=== PATIENT | female | born 1980 | race Caucasian/White ===

== ENCOUNTER → 2016-10-26 | Outpatient (CLI) | payer OTHER ==
[~2016-10-26] MED LIST: OXYC-57 PO; PRENTAB26 PO
[2016-10-26 16:51] LABS: URINE APPEARANCE CLEAR (CLEAR); URINE BILIRUBIN NEG (NEG); URINE COLOR YELLOW; URINE NITRITE NEG (NEG); URINE PH 6.5 (4.5-7.5); UROBILINOGEN NEG (NEG)
[2016-10-26 16:54] LABS: MANUAL MICROSCOPIC REQUIRED? NO; REVIEW REQ? NO
[2016-10-30 14:52] LABS: CHLAMYDIA TRACH RNA*** NOT DETECTED (NOT DETECTED); GC (NEIS GONORRHOEAE)RNA** NOT DETECTED (NOT DETECTED)
== END | disposition home or self-care (01) ==
LOC: C.LABSPEC 16:20
PROVIDERS: ATTEND Obstetrics & Gynecology
DX: O09.42 Supervision of pregnancy with grand multiparity, second trimester (principal)

== ENCOUNTER → 2016-10-26 | Outpatient (CLI) | payer OTHER ==
[2016-10-26 12:53] LABS: BASO % 0.2 %; BASO ABS # 0.02 K/uL (0-0.2); COMPLETE YES; HEMATOCRIT 36.9 % (37-47); IG% 1.3 %; LYMPH % 26.8 %; LYMPH ABS # 2.69 K/uL (1.2-3.4); MEAN CELL VOLUME 94.6 fL (80-100); MEAN CORPUSCULAR HEMOGLOBIN 31.8 pg (25-34); MEAN CORPUSCULAR HGB CONC 33.6 g/dl (32-36); MEAN PLATELET VOLUME 10.9 fL (7.4-10.4); MONO % 5.6 %; NEUT % 64.1 %; PLATELET COUNT 271 K/uL (130-400); WHITE BLOOD COUNT 10.04 K/uL (4.8-10.8)
== END | disposition home or self-care (01) ==
LOC: C.LAB1850 10:41
PROVIDERS: ATTEND Obstetrics & Gynecology
DX: O09.42 Supervision of pregnancy with grand multiparity, second trimester (principal)

== ENCOUNTER → 2016-12-21 | Outpatient (CLI) | payer OTHER ==
[2016-12-21 12:03] LABS: HEMATOCRIT 36.4 % (37-47)
[2016-12-21 13:27] LABS: GTGD 50 Grams
== END | disposition home or self-care (01) ==
LOC: C.LAB1850 09:57
PROVIDERS: ATTEND Obstetrics & Gynecology
DX: O09.523 Supervision of elderly multigravida, third trimester (principal); Z3A.00 Weeks of gestation of pregnancy not specified

== ENCOUNTER → 2016-12-21 | Outpatient (CLI) | payer OTHER ==
[2016-12-21 14:13] LABS: URINE APPEARANCE CLEAR (CLEAR); URINE BILIRUBIN NEG (NEG); URINE COLOR DK YELLOW; URINE NITRITE NEG (NEG); URINE PH 6.5 (4.5-7.5); URINE SPECIFIC GRAVITY 1.027 (1.000-1.030); UROBILINOGEN NEG (NEG)
[2016-12-21 14:24] LABS: MANUAL MICROSCOPIC REQUIRED? NO; REVIEW REQ? YES
== END | disposition home or self-care (01) ==
LOC: C.LABSPEC 13:31
PROVIDERS: ATTEND Obstetrics & Gynecology
DX: O09.523 Supervision of elderly multigravida, third trimester (principal); Z3A.00 Weeks of gestation of pregnancy not specified

== ENCOUNTER → 2017-02-27 | Outpatient (CLI) | payer OTHER ==
[~2017-02-27] MED LIST changes: -OXYC-57 PO
== END | disposition home or self-care (01) ==
LOC: C.LABSPEC 16:02
PROVIDERS: ATTEND Obstetrics & Gynecology
DX: O09.523 Supervision of elderly multigravida, third trimester (principal)

== ENCOUNTER 2017-03-08 11:23 | Outpatient (CLI) | payer OTHER ==
[~2017-03-08] VITALS: Ht 162.6 cm; Wt 87.0 kg
[2017-03-08] MEDS ORDERED: PRENTAB26 PO (12:01)
[2017-03-08 12:04] VITALS: Ht 162.6 cm; Wt 87.0 kg
== END 2017-03-08 12:45 | disposition home or self-care (01) ==
LOC: C.OPB 11:23 → C.LD 11:23 → C.OPB 12:45
PROVIDERS: ATTEND Obstetrics & Gynecology
DX: O62.9 Abnormality of forces of labor, unspecified (principal); Z3A.39 39 weeks gestation of pregnancy

== ENCOUNTER 2017-03-09 08:05 | Inpatient (IN) | payer OTHER ==
[~2017-03-09] VITALS: Ht 162.6 cm; Wt 88.2 kg
[2017-03-09] MEDS ORDERED: LACTATED RINGER'S 1000ML 1,000 ML IV PRN (08:18)
[2017-03-09] MEDS ORDERED: LACTATED RINGER'S 1000ML 1,000 ML IV SCH (08:18)
[2017-03-09] MEDS ORDERED: PENICILLIN G POTASSIUM IV 3 MU in DEXTROSE 5% 100ML 100 ML IV PRN (08:30)
[2017-03-09] MEDS ORDERED: PENICILLIN G POTASSIUM IV 6 MU in DEXTROSE 5% 250ML 250 ML IV ONE (08:45)
[2017-03-09 09:02] LABS: HEMATOCRIT 35.4 % (37-47); MEAN CELL VOLUME 89.8 fL (80-100); MEAN CORPUSCULAR HEMOGLOBIN 30.2 pg (25-34); MEAN CORPUSCULAR HGB CONC 33.6 g/dl (32-36); MEAN PLATELET VOLUME 9.8 fL (7.4-10.4); PLATELET COUNT 228 K/uL (130-400); RED BLOOD COUNT 3.94 M/uL (4.2-5.4); WHITE BLOOD COUNT 10.34 K/uL (4.8-10.8)
[2017-03-09 09:25] VITALS: Ht 162.6 cm; Wt 88.2 kg
[2017-03-09] MEDS ORDERED: FENTANYL 2MCG/ML ROPIV 1.25MG/ML 100ML BAG EPI ONE (09:44)
[2017-03-09] MEDS ORDERED: EpHEDrine SULFATE INJ 50 MG/ML AMP ONE (09:44)
[2017-03-09] MEDS ORDERED: BUPIVACAINE 0.25% 30 ML VIAL ONE (09:44)
[2017-03-09] MEDS ORDERED: FENTANYL CITRATE INJ 50 MCG/1 ML 2 ML VIAL ONE (09:45)
[2017-03-09] MEDS ORDERED: LACTATED RINGER'S 1000ML 500 ML IV PRN (10:40)
[2017-03-09] MEDS ORDERED: FENTANYL 2MCG/ML ROPIV 1.25MG/ML 100ML BAG EPI PRN (10:45)
[2017-03-09] MEDS ORDERED: NALOXONE HCL INJ 0.4 MG/1 ML VIAL/CARP IV PRN (10:45)
[2017-03-09] MEDS ORDERED: EpHEDrine SULFATE INJ 50 MG/ML AMP IV PRN (10:45)
--- NOTE | 2017-03-09 11:48 | Medical Student: [facility] ---
Med Student History & Physical Date of Service Mar 09, 2017. Chief Complaint R/O Labor History of Present Illness Source: patient This is a 36 year old female who presents for a labor check. Her ISMAEL is 03/12 based on 1st trimester US, and she is 39 weeks, 4 days GA. Her course was uncomplicated. She is currently feeling contractions every 10 minutes and has had no SROM, leakage of fluid, or vaginal bleeding. She states that she can feel movements.Her blod type is A+ and she is rubella immune ; GBS positive; hep B negative; VDRL/RPR non-reactive; HIV C/G negative; 1 hour glucose 133 on 12/21, just above high limit of normal. She denies headache, dizziness, epigastric/chest pain, shortness of breath, nausea/vomiting, dysuria , and bowel problems. OB History : 04/29/1998, male, , no complications; 6 lbs, 12 ounces G2: 07/25/2007, female, , no complications;7 lbs, 11 ounces G3: 11/14/2008, female, , no complications; 6 lbs, 7 ounces G4: 02/05/2013, female, , no complications; 7 lbs, 12 ounces AIRPLANE PILOT History Menarche: age 11 LMP: 06/05/2016 Pap history: abnormal pap at age 20 with close follow up; no abnormals since then No history of STIs. Past Medical History No pertinent medical history. Past Surgical History Appendectomy [place] teeth extraction Family History Father: HTN Mother: hyperthyroidism Daughter: AML shortly after ; currently in remission Social History Smoking Status: Never Smoker Smokeless Tobacco Use: No Alcohol Use: none Drug Use: none Marital Status: Housing status: lives with family Occupational Status: employed Allergies Coded Allergies: Nitrofurantoin (Unverified Allergy, Intermediate, RASH, 03/09/17) scratchy throat Home Medications Multivit/Min/Iron/Fol Ac/Pren ( Vitamin), 1 TAB PO DAILY Review of Systems Constitutional: No fever, No chills, No sweats, No weight loss, No weakness, No fatigue, No problem reported Respiratory: No cough, No sputum, No wheezing, No shortness of breath, No dyspnea on exertion, No dyspnea at rest, No hemoptysis, No problem reported Cardiovascular: No chest pain, No orthopnea, No PND, No edema, No claudication , No palpitations, No problem reported Abdomen: No pain, No nausea, No vomiting, No diarrhea, No constipation, No GI bleeding, No problem reported Genitourinary - Female: + , No dysuria, No urinary retention, No hematuria, No vaginal bleeding Neurologic: No problem reported Physical Exam Vital Signs: T 36.6 BP 121/71 HR 78 RR 18 General Appearance: WD/WN, no apparent distress Head: normocephalic Eyes: normal inspection Respiratory/Chest: chest non-tender, lungs clear Cardiovascular: regular rate, rhythm, no edema, no JVD, no murmur Abdomen / GI: normal bowel sounds, non tender, + pertinent finding (Gravid uterus) Genitourinary - Female: + pertinent finding (Dilation: 4 cm Effacement: 90% Station: -2 (exam by Dr. Al)) Extremities: normal inspection, no calf tenderness, no pedal edema Skin: normal color Monitoring External Monitor: Moderate variability. +Accels. No decels. Category 1. HR baseline: 130. Tocodynamometer: Contractions every 10 minutes. Laboratory Results 03/09/17 08:52 Test 03/09/17 08:52 Red Blood Count 3.94 M/uL (4.2-5.4) Mean Corpuscular Volume 89.8 fL (80-100) Mean Corpuscular Hemoglobin 30.2 pg (25-34) Mean Corpuscular Hemoglobin Concent 33.6 g/dl (32-36) RDW Standard Deviation 45.8 fL (36.4-46.3) RDW Coefficient of Variation 13.8 % (11.5-14.5) Mean Platelet Volume 9.8 fL (7.4-10.4) Assessment and Plan Assessment: This is a 36-year-old female who presents for labor check at 39 weeks, 4 days GA. Her has had no complications. Vital signs were reviewed and are stable. Plan: Admit to labor and delivery. Monitor mother and fetus with toco and EFM. NPO except ice chips and clear liquids. Expectant management for now. Will consider Pitocin and/or AROM for induction if needed ( distress, prolonged first stage of labor) Expect normal spontaneous vaginal delivery.
[2017-03-09] MEDS ORDERED: OXYTOCIN 30 UNITS/500ML NSS IV ONE (14:12)
[2017-03-09] MEDS ORDERED: LANOLIN OINT EXT PRN ×2 (14:30)
[2017-03-09] MEDS ORDERED: SUPERCREAM 0.870 % 15GM JAR EXT PRN (14:30)
[2017-03-09] MEDS ORDERED: HYDROCORTISONE ACETATE 25 MG SUPP PR PRN (14:30)
[2017-03-09] MEDS ORDERED: OXYTOCIN 30 UNITS/500ML NSS IV PRN (14:30)
[2017-03-09] MEDS ORDERED: ACETAMINOPHEN/CODEINE 300/30MG TAB PO PRN (14:30)
[2017-03-09] MEDS ORDERED: BENZOCAINE 20% AER SPR 82.5 GM CAN EXT PRN (14:30)
[2017-03-09] MEDS ORDERED: IBUPROFEN 600 MG TAB PO PRN (14:30)
[2017-03-09] MEDS ORDERED: ACETAMINOPHEN 325 MG TAB PO PRN (14:30)
--- NOTE | 2017-03-09 14:31 | DELIVERY SUMMARY ---
DATE OF OPERATION: 03/09/2017 DATE OF DELIVERY: 03/09/2017 PREOPERATIVE DIAGNOSES: 1. Intrauterine at 39-4/7 weeks. 2. Active labor. 3. GBS positive. POSTOPERATIVE DIAGNOSIS: Same. PROCEDURES: 1. Epidural anesthesia. 2. Penicillin for GBS prophylaxis. 3. Amniotomy. 4. Normal spontaneous vaginal delivery. 5. Small periurethral laceration with repair. SURGEON: Dr. Al. ASSIST: Dr. Marks, PGY1 ANESTHESIA: Epidural. ESTIMATED BLOOD LOSS: 350 mL. PROCEDURE: The patient presented to labor and delivery in early active labor. She is GBS positive so she was admitted. She got adequate treatment for her GBS with 2 doses of penicillin and an epidural anesthesia. Once the second dose of penicillin was in amniotomy was performed of clear fluid when she was 5.5 cm. She progressed to complete complete +3 station, pushed x1 to deliver a viable female in YURIY presentation. There was no nuchal cord. The nose and mouth were bulb suctioned. The rest of the infant was delivered without difficulty. Infant was placed on the maternal abdomen where the cord was clamped and cut. Cord blood was obtained. Placenta was manually extracted from the lower uterine segment, it was intact. Cervix, sulci, rectum and perineum were intact. A small tear over the urethra was repaired with 2 interrupted sutures of 4-0 Vicryl. Hemostasis was obtained with dilute Pitocin and fundal massage. Estimated blood loss 350 mL. Apgars pending. Mother and baby doing well at the end of the delivery. I attest to the content of the Intraoperative Record and any orders documented therein. Any exceptions are noted below. MTDKurtis
--- NOTE | 2017-03-09 17:02 | Anesthesia Procedure Note ---
Anesthesia Epidural Removal Nt Date & Time Mar 09, 2017 at 17:02 Notes Mental Status: alert / awake / arousable, participated in evaluation Nausea / Vomiting: adequately controlled Pain: adequately controlled Airway Patency, RR, SpO2: stable & adequate BP & HR: stable & adequate Hydration State: stable & adequate Neuraxial Anesthesia: was administered Anesthetic Complications: no major complications apparent, pt satisfied with anesthetic care Epidural: removed without complications, with tip intact
[2017-03-09 17:30] VITALS: BP 106/66; PULSE 71; TEMP 37.4
[2017-03-09] MEDS: DOCUSATE SODIUM 100 MG CAP PO SCH (19:57)
[2017-03-09 20:00] VITALS: BP 114/73; PULSE 71; TEMP 37.3
[2017-03-09 23:35] VITALS: BP 111/72; PULSE 68; TEMP 37.3; O2SAT 98
[2017-03-10 03:30] VITALS: BP 117/72; PULSE 73; TEMP 37; O2SAT 97
[2017-03-10 07:30] VITALS: BP_SYST 112; BP_SYST 113; BP_DIAS 72; BP_DIAS 75; PULSE 66; PULSE 69; TEMP 37; O2SAT 98
[2017-03-10 07:37] LABS: HEMATOCRIT 36.6 % (37-47)
--- NOTE | 2017-03-10 07:37 | Progress Note ---
Subjective Mar 10, 2017. Subjective conversation w/ patient, physical exam, lab review Ambulation: ambulating normally Voiding: no voiding problems Passing Gas: Yes Diet Tolerance: Regular Diet Lochia: Small Feeding Type: Breast Feeding Objective Vital Signs Date Time Temp Pulse Resp B/P (MAP) Pulse Ox O2 Delivery O2 Flow Rate FiO2 03/10/17 03:30 37.0 73 16 117/72 (87) 97 Room Air 03/09/17 23:35 37.3 68 16 111/72 (85) 98 Room Air 03/09/17 23:35 98 Room Air 03/09/17 20:00 37.3 71 16 114/73 (87) Room Air 03/09/17 17:30 37.4 71 18 106/66 (79) 03/09/17 17:30 Room Air Physical Exam General Appearance: WELL-APPEARING, WD/WN, NO APPARENT DISTRESS Respiratory/Chest: chest non-tender, lungs clear Cardiovascular: regular rate, rhythm Abdomen: non tender, soft Fundus: Firm, Non-Tender, Relation to Umbilicus (2 below) Extremities: non-tender, normal inspection, + pedal edema (trace) Laboratory Results Last 24 Hours Test 03/09/17 08:52 03/10/17 06:36 White Blood Count 10.34 K/uL Red Blood Count 3.94 M/uL Hemoglobin 11.9 g/dL Hematocrit 35.4 % Mean Corpuscular Volume 89.8 fL Mean Corpuscular Hemoglobin 30.2 pg Mean Corpuscular Hemoglobin Concent 33.6 g/dl RDW Standard Deviation 45.8 fL RDW Coefficient of Variation 13.8 % Platelet Count 228 K/uL Mean Platelet Volume 9.8 fL Assessment and Plan Post- Day#: 1 Continue Routine Care: Doing well. Wants d/c today. Instructions given. Call with problems.
--- NOTE | 2017-03-10 07:41 | Discharge Instructions ---
Discharge Instructions Date of Service Mar 10, 2017. Admission Reason for Admission: R/O Labor Discharge Discharge Diagnosis / Problem: s/p vaginal delivery Discharge Goals Goal(s): Routine recovery after delivery Medications Continue Dispensed Medications: supercream, dermaplast, tucks, lansinoh Activity Recommendations Activity Limitations: per Instructions/Follow-up section . Instructions / Follow-Up Instructions / Follow-Up ACTIVITY RECOMMENDATIONS: * Gradual return to full activity over the next 2-3 weeks. * No lifting - nothing heavier than baby over the next 2-3 weeks. * Do not engage in vigorous exercise, sexual activity or sports until cleared by your physician. * Do not drive or operate any motorized equipment until cleared by your physician. * You may shower/bathe daily. MEDICATIONS: For discomfort or pain, you may use Acetaminophen (Tylenol), Ibuprofen (Advil), or Naproxen (Aleve) following the package directions. For constipation you may use Colace following the package directions. BREAST CARE: If you are not breast feeding: * Wear a supportive bra 24 hours a day for one to two weeks. * Avoid stimulating your breasts and nipples as much as possible during the first few weeks after delivery. * When taking a shower, have the warm water hit your back, not breasts. * When your breasts feel full, apply ice packs. Usually three to four times a day helps ease the discomfort. * Take a mild pain medication (Tylenol / Motrin) when you are uncomfortable. If breast feeding: * Use breast milk to lubricate nipples. Lansinoh cream may be used for sore nipples. You do not need to remove cream prior to breast feeding. If using a different brand of cream, check the label for directions regarding removal of cream prior to nursing. * Wear a supportive bra. * If having problems with breasts or breast feeding, call a marine consultant or your health care provider. EPISIOTOMY CARE: After delivery, if you have an episiotomy (stitches), the following steps will ease discomfort and aid healing. * For the first 24 hours after delivery, place ice packs next to your episiotomy to help reduce swelling. * After the first 24 hour-period, sitz baths, either portable or in the tub, are suggested. A shower with a shower arm sprayed over the episiotomy may be comforting. * Nany care should be done after each voiding and bowel movement. Squirt warm water from a plastic bottle over the perineum (region of the body between the anus and urinary opening) and pat dry. * Use Dermoplast to ease discomfort. Shake container. [place] directly over the episiotomy. Place a Tucks on a clean sanitary pad next to your episiotomy. SPECIAL CARE INSTRUCTIONS: When you are discharged from the hospital, it is important for you to follow the instructions listed below: * During the first week at home, you should be able to care for yourself and your baby. In addition, the usual light household activities are encouraged. * Limit your activities to the way you feel. Do not try to clean the house or move furniture. Be sensible. * If you actively engage in sports and have done so up until the time of your delivery, you may resume these activities as soon as you feel able. This may take up to one month or even longer. Use good judgment. * Continue to take your vitamins for at least six weeks after the of your baby. * Your diet need not be limited unless you were on a special diet before your delivery. Breast-feeding mothers need around 2500 calories per day and at least 64-80 ounces of fluid per day (8 to 10 glasses). * You should eat foods from the four major food groups. Crash diets or fad diets are to be avoided. Eating lean meats, fresh fruits and vegetables, low-fat dairy products, high fiber foods and a regular exercise program, will help you get back to your pre- weight without putting your health at risk. * Constipation is sometimes a problem after delivery. Take a mild laxative as needed. If breast feeding, Milk of Magnesia is acceptable to use. You may use a suppository or Fleets enema if no episiotomy. * A daily shower or tub bath is suggested. Be sure to thoroughly and gently dry the perineum. * A bloody vaginal discharge will usually continue until around four weeks post . A small amount of bleeding may continue for as long as six weeks. Vaginal discharge changes from the bright red bleeding after delivery to pink then brownish and finally yellowish-pink before becoming white and disappearing. * Bleeding may increase with activity. Your first period may come in 4-8 weeks. If you are breast feeding, your period may be delayed even longer. * [place] (sex) can begin whenever both you and your partner feel comfortable and do not have any form of genital infection. It is recommended that you wait at least six weeks for internal and external healing to occur. If you have questions, please talk to your health care practitioner. A condom should be used to prevent infection and . * Foreplay, gentle intercourse and lubrication is very important the first several times to prevent pain. A water-based lubricant such as K-Y jelly or Astroglide may be used. * If you have RH negative blood and your baby is RH positive, you will receive RHOGAM by injection prior to discharge. The nurse will give you a card to keep with you that has the date and place that you received RHOGAM after delivery. * During your care, you had a Rubella screen done to check for the presence of rubella antibodies in your blood. If your test was negative, you will receive a Rubella vaccine prior to discharge. This vaccine may cause a fever, soreness at the injection site and flu-like symptoms. If these symptoms persist, notify your health care practitioner. is not advised for one month after a Rubella vaccine. * Verbalizes understanding of car seat law as reviewed with patient nursing. * Car Seat hand-out given and reviewed with patient by nursing. * Shaken baby information reviewed with patient by nursing. Call you doctor if: * Heavy bleeding (saturating several pads an hour) or passing clots the size of your fist. * A fever >101 degrees F (38.3 degrees C) on two occasions four hours apart and /or chills. * Unusual pain in the pelvic or vaginal areas. * "Baby Blues" lasting longer than two weeks. If you have any questions or concerns, call your health care practitioner at . FOLLOW UP VISIT: * Please call the office at to schedule a 6 week examination. It is important you keep this appointment. It is important for you to make arrangements for either yearly or twice yearly check-ups thereafter. Current Hospital Diet Patient's current hospital diet: Regular Diet Discharge Diet Recommended Diet: Regular Diet Pending Studies Studies pending at discharge: no Medical Emergencies . Who to Call and When: Medical Emergencies: If at any time you feel your situation is an emergency, please call 911 immediately. . Non-Emergent Contact Non-Emergency issues call your: Log Carrier Operator . . "Provider Documentation" section prepared by Tamar Al. . VTE Core Measure Inpt VTE Proph given/why not?: Treatment not indicated
[2017-03-10] MEDS ORDERED: FERROUS SULFATE 325 MG TAB PO SCH (08:00)
[2017-03-10] MEDS ORDERED: PRENATAL VITAMIN TAB PO SCH (08:00)
[2017-03-10] MEDS: DOCUSATE SODIUM 100 MG CAP PO SCH (08:17)
[2017-03-10 11:35] VITALS: BP 113/72; PULSE 69; TEMP 37
[2017-03-10 15:15] VITALS: BP 107/71; PULSE 69; TEMP 37.2; O2SAT 98
[2017-03-10 16:00] VITALS: BP_DIAS 71; PULSE 69; TEMP 37.2
[2017-03-10] MEDS ORDERED: BISACODYL 5 MG TABEC PO SCH (20:00)
[2017-03-11] MEDS ORDERED: BISACODYL 10 MG SUPP PR PRN (07:00)
== END 2017-03-10 16:30 | disposition home or self-care (01) | DRG 775 ==
LOC: C.LD 08:05 → C.OPB 08:05 → C.LD 08:19 → C.OPB 08:19 → C.OBG 17:02
PROVIDERS: ADMIT Obstetrics & Gynecology; ATTEND Obstetrics & Gynecology
PROC: 0UQMXZZ Repair Vulva, External Approach (ICD-10-PCS; principal; 2017-03-09)
PROC: 10907ZC Drainage of Amniotic Fluid, Therapeutic from Products of Conception, Via Natural or Artificial Opening (ICD-10-PCS; principal; 2017-03-09)
PROC: 10E0XZZ Delivery of Products of Conception, External Approach (ICD-10-PCS; principal; 2017-03-09)
DX: O99.824 Streptococcus B carrier state complicating childbirth (principal); O09.523 Supervision of elderly multigravida, third trimester; Z3A.39 39 weeks gestation of pregnancy; O71.82 Other specified trauma to perineum and vulva; Z37.0 Single live birth

== ENCOUNTER → 2017-05-21 | Day surgery (SDC) | payer OTHER ==
[2017-05-10 07:33] VITALS: Ht 163.8 cm; Wt 77.3 kg
[2017-05-10 16:52] LABS: HEMATOCRIT 41.4 % (37-47); MEAN CELL VOLUME 87.9 fL (80-100); MEAN CORPUSCULAR HEMOGLOBIN 29.5 pg (25-34); MEAN CORPUSCULAR HGB CONC 33.6 g/dl (32-36); MEAN PLATELET VOLUME 10.8 fL (7.4-10.4); PLATELET COUNT 277 K/uL (130-400); RED BLOOD COUNT 4.71 M/uL (4.2-5.4); WHITE BLOOD COUNT 7.34 K/uL (4.8-10.8)
--- NOTE | 2017-05-11 08:56 | HISTORY & PHYSICAL EXAMINATION ---
DATE OF ADMISSION: 05/21/2017 CHIEF COMPLAINT: Desires permanent surgical sterilization. HISTORY OF PRESENT ILLNESS: Stefanie is a 36-year-old white female, 5, para 4, who recently had a normal spontaneous vaginal delivery. The patient presented to her visit, desiring permanent surgical sterilization for contraception. We discussed the options of long-term reversible contraception, laparoscopic sterilization, Essure procedure and vasectomy. She wishes to proceed with laparoscopic tubal sterilization. She has been on progesterone only pills since her visit. PAST OB AND VISUALIZER HISTORY: The patient has a history of 5 pregnancies with 5 vaginal deliveries. She denies abnormal Pap smears or sexually transmitted illnesses. ALLERGIES: MACROBID. MEDICATIONS: Include only a vitamin and the progesterone only pills. PAST MEDICAL HISTORY: The patient is healthy. Denies thyroid disease, asthma, heart disease, heart murmur, diabetes, kidney or liver problems. PAST SURGICAL HISTORY: Includes appendectomy and wisdom teeth removal. SOCIAL HISTORY: The patient is . She is a nonsmoker. She occasionally drinks alcohol. She lives at home with her family. PHYSICAL EXAMINATION: GENERAL: This is a well-developed and well-nourished white female in no acute distress. VITAL SIGNS: Blood pressure 106/80 and weight 172 pounds. NECK: Supple without thyromegaly or lymphadenopathy. CHEST: Clear to auscultation bilaterally. CARDIOVASCULAR: Regular rate and rhythm without murmurs, gallops or rubs. BACK: Without costovertebral angle tenderness. ABDOMEN: Soft, nontender, and nondistended without appreciable masses. EXTREMITIES: Benign. ASSESSMENT: Stefanie is a 5, para 5 who is 36 years old, desires permanent surgical sterilization. The other options for control were discussed with the patient including barriers, hormones, long-term reversible contraceptive options as well as vasectomy. She declines all of these. We discussed the risks, benefits and side effects of the Essure versus laparoscopic tubal sterilization and she desires to proceed with laparoscopic tubal sterilization. The risks of the procedure were discussed with the patient in depth including the risks of anesthesia, bleeding requiring transfusion, infection, poor wound healing, damage to surrounding structures including bowel, bladder, vessels, nerves and ureters which could require further surgery, hospitalization or intervention. The other risks of any surgery were discussed with the patient including heart attack, blood clot, stroke or . Consent was reviewed and signed and surgery is planned for later in the month of April.
[~2017-05-21] VITALS: Ht 163.8 cm; Wt 77.3 kg
[~2017-05-21] MED LIST changes: +ATROPINE SULFATE 0.1 MG/ML 5ML SYR IV PRN; +BUPIVACAINE 0.5 % 5 MG/1 ML MPF 30ML VIAL ONE; +DEXAMETHASONE SOD INJ 4 MG/ML VIAL ONE; +EpHEDrine SULFATE INJ 50 MG/ML AMP IV PRN; +FENTANYL CITRATE INJ 50 MCG/1 ML 2 ML VIAL IV PRN; +FENTANYL CITRATE INJ 50 MCG/1 ML 2 ML VIAL ONE; +FLUMAZENIL 0.1 MG/1 ML 10 ML VIAL IV PRN; +GLYCOPYRROLATE INJ 0.2 MG/ML VIAL ONE; +IBUPROFEN 600 MG TAB PO PRN; +KETOROLAC TROMETHAMINE 30 MG/ML VIAL IV. PRN; +KETOROLAC TROMETHAMINE 30 MG/ML VIAL ONE; +LACTATED RINGER'S 1000ML 1,000 ML IV SCH; +LIDOCAINE HCL 2% 2 ML VIAL (20MG/ML) ONE; +MIDAZOLAM HCL 1 MG/ML 2ML VIAL ONE; +MoRPHine SULFATE 2 MG/ML CARP IV PRN; +NALOXONE HCL 0.4 MG/1 ML VIAL/CARP IV PRN; +NEOSTIGMINE METHYLSULFATE 5 MG/5 ML SYR ONE; +ONDANSETRON INJ 2 MG/ML 2 ML VIAL IV PRN; +ONDANSETRON INJ 2 MG/ML 2 ML VIAL ONE; +OXYC-57 PO; +OXYCODONE/ACETAMINOPHEN 5-325 TAB PO PRN; -PRENTAB26 PO; +PROMETHAZINE HCL INJ 12.5 MG in SODIUM CHLORIDE 0.9% 50ML 50 ML IV PRN; +PROPOFOL IV EMULSION 10 MG/ML 20 ML VIAL IV ONE; +ROCURONIUM BROMIDE 10 MG/ML 5 ML VIAL IV ONE; +SODIUM CHLORIDE 0.9% 1000ML 1,000 ML IV SCH
--- NOTE | 2017-05-21 06:47 | History & Physical Bridge - [place] ---
H&P Re-Evaluation Bridge Note: I have examined the patient, reviewed the History & Physical and in the interval since the performance of the History & Physical I have noted the following changes of clinical significance: No changes noted
--- NOTE | 2017-05-21 07:44 | [facility] Post Operative Brief Note ---
Immediate Operative Summary Operative Date May 21, 2017. Pre-Operative Diagnosis Desires Permanent Sterilization Post-Operative Diagnosis Same Procedure(s) Performed Laparoscopic Tubal Sterilization Surgeon Dr. Al Networking Engineer Surgeon(s) None Estimated Blood Loss 0 Findings nl utx/tubes/ovaries, nl liver edge. Fluids (cc crystalloids) 800cc Specimens None Drains none Anesthesia gett Complication(s) None Disposition Recovery Room / PACU
--- NOTE | 2017-05-21 07:46 | Discharge Instructions ---
Discharge Instructions Date of Service May 21, 2017. Visit Reason for Visit: Requests Sterilization Discharge Discharge Diagnosis / Problem: s/p laproscopic tubal sterilization Discharge Goals Goal(s): Specific goals Activity Recommendations Activity Limitations: per Instructions/Follow-up section Anesthesia . Post Anesthesia Instructions: If you have had General Anesthesia or IV Sedation: * Do not drive today. * Resume driving when surgeon permits. * Do not make important decisions or sign legal documents today. * Call surgeon for: 1. Temperature elevations greater than 101 degrees F. 2. Uncontrollable pain. 3. Excessive bleeding. 4. Persistent nausea and vomiting. 5. Medication intolerance (nausea, vomiting or rash). * For nausea and vomiting use only clear liquids such as: tea, soda, bouillon until nausea subsides, then gradually increase diet as tolerated. * If you have any concerns or questions, call your surgeon's office. If physician is unavailable and it is an emergency, call 911 or go to the nearest emergency room. . Instructions / Follow-Up Instructions / Follow-Up ACTIVITY RECOMMENDATIONS: * Rest the first 2-3 days. You should be back to your normal activity levels by day 3. * No heavy lifting for 2 weeks. * No intercourse, tampons or douching for 1-2 weeks. * You may shower the next day. * Do not drive anytime that you are taking narcotic pain medicines. RETURN TO SCHOOL/WORK: * May return to school or work after 2-3 days. DIET: Nausea may occur in the immediate post-operative period. If so, take clear liquids such as tea, bouillon, apple juice until all nausea has subsided, then resume usual diet. MEDICATIONS: Resume previous medications unless instructed otherwise by your surgeon. Ibuprofen 200mg 2-3 tablets every 4-6 hours as needed -- OR -- Aleve 2 tablets every 8-12 hours as needed for post-operative discomfort Medications are over the counter. Tylenol may be used if above medications are contraindicated or not preferred. Medication should be taken with food or milk. Do not take on an empty stomach. SPECIAL CARE INSTRUCTIONS: * Check temperature twice daily for one week. report any elevation over 101 degrees. * You may experience some vagina spotting and/or bleeding. This is normal for 1 -2 weeks and should not be heavier than a normal period. If it is unusual in amount, call your physician. * Post-operative discomfort may consist of a sore throat, a "bloated" feeling and pain in the shoulders. these are normal symptoms, which usually only last for 2-3 days. * Remove band-aids tomorrow and shower. There is no need to replace band-aids unless there is drainage or discomfort. FOLLOW UP VISIT: Call your doctor's office for a post-operative 2 week visit if not already scheduled. Diet Recommendations Recommended Home Diet: no limitations, resume previous diet Procedures Procedures Performed: Laparoscopic Tubal Sterilization Pending Studies Studies pending at discharge: no Medical Emergencies . Who to Call and When: Medical Emergencies: If at any time you feel your situation is an emergency, please call 911 immediately. . Non-Emergent Contact Non-Emergency issues call your: Lockstitch Pocket Setter . . "Provider Documentation" section prepared by Tamar Al. . [place] Drug Monitoring Program Search Results: patient reviewed within database, no issues identified
--- NOTE | 2017-05-21 08:04 | OPERATIVE REPORT ---
DATE OF OPERATION: 05/21/2017 PREOPERATIVE DIAGNOSIS: Desires permanent surgical sterilization. POSTOPERATIVE DIAGNOSIS: Desires permanent surgical sterilization. PROCEDURE: Laparoscopic tubal sterilization. SURGEON: Tamar Al MD. ANESTHESIA: General per endotracheal tube. ESTIMATED BLOOD LOSS: Zero. FLUIDS: 800 mL of IV fluid. URINE OUTPUT: Clear yellow urine draining from Decker catheter at the end of the procedure. INDICATIONS: The patient is a 5, para 5 who desires permanent surgical sterilization, declines other options for control. FINDINGS: Normal uterus, tubes, and ovaries were noted bilaterally, normal liver edge. COMPLICATIONS: None. DRAINS: None. DISPOSITION: To recovery room in stable condition. DESCRIPTION OF PROCEDURE: The patient was taken to the operating room where she was identified verbally and by bracelet. She was placed in dorsal supine position where general anesthesia was induced without difficulty. She was then placed in dorsal lithotomy position in [facility]-cane stirrups and prepped and draped in normal sterile fashion. Timeout was held identifying correct patient, procedure and positioning. Attention was turned to the vagina where a weighted speculum was placed in the posterior vagina. Anterior lip of the cervix was grasped with single tooth tenaculum and a Addison uterine manipulator was placed into the cervix. A Decker a Decker catheter was then placed. Gloves were then changed. Attention was turned to the abdomen where an infraumbilical incision was made with a knife. A Veress needle was placed through this opening pressure 3 mmHg. Abdomen insufflated with 3.5 liters of carbon dioxide gas. An 11 mm optical trocar was then placed through this and direct intra-abdominal placement was noted visually. A 5 mm trocar was then placed suprapubically under direct visualization. The patient was placed into Trendelenburg and then using bipolar cautery, the tubes on the right and left were then cauterized in approximately 2 cm of length. The procedure was thus terminated. All trocars were removed visually. The gas was released from the abdomen. A deep suture of 0 Vicryl was placed in the umbilical incision and the skin closed with subcuticular stitch of 4-0 Vicryl. The incisions were infiltrated with 0.5% Marcaine. Dermabond was placed over the incisions. The instruments were removed from the vagina and hemostasis was noted to be excellent. All sponge, lap and needle counts were correct x2. The patient tolerated the procedure well and was taken to recovery room in stable condition. I attest to the content of the Intraoperative Record and any orders documented therein. Any exception s are noted below.
--- NOTE | 2017-05-21 08:55 | Anesthesia Progress Nt - [facility] ---
Anesthesia Post Op Note Date & Time May 21, 2017 at 08:55 Vital Signs Pain Intensity: 1 Vital Signs Past 12 Hours Date Time Temp Pulse Resp B/P (MAP) Pulse Ox O2 Delivery O2 Flow Rate FiO2 05/21/17 08:33 36.4 52 18 100/58 (72) 96 Room Air 05/21/17 08:26 104/65 05/21/17 08:25 36.8 50 16 104/65 96 Room Air 05/21/17 08:23 47 13 97 05/21/17 08:23 48 13 05/21/17 08:22 51 17 05/21/17 08:22 52 17 96 05/21/17 08:21 101/62 05/21/17 08:17 56 20 97 05/21/17 08:17 56 20 05/21/17 08:16 109/45 05/21/17 08:12 64 18 05/21/17 08:12 64 18 99 05/21/17 08:11 117/75 05/21/17 08:07 59 11 100 05/21/17 08:07 58 11 05/21/17 08:06 113/63 05/21/17 08:02 65 17 100 05/21/17 08:02 64 17 05/21/17 08:01 109/56 05/21/17 07:59 99/60 05/21/17 07:57 76 13 05/21/17 07:57 77 13 171/157 100 05/21/17 07:55 97/52 05/21/17 07:54 73 19 97/52 (66) 98 Mask 6 05/21/17 07:52 80 15 05/21/17 07:52 79 15 100 05/21/17 07:47 77 10 107/78 98 05/21/17 07:47 78 10 05/21/17 07:47 36.2 77 10 107/78 98 Mask 6 05/21/17 06:33 36.5 68 16 116/78 (91) 96 Room Air Notes Mental Status: alert / awake / arousable, participated in evaluation Pt Amnestic to Procedure: Yes Nausea / Vomiting: adequately controlled Pain: adequately controlled Airway Patency, RR, SpO2: stable & adequate BP & HR: stable & adequate Hydration State: stable & adequate Anesthetic Complications: no major complications apparent
[2017-05-21 09:04] VITALS: BP 105/70; PULSE 52; TEMP 36.2; O2SAT 98
== END | disposition home or self-care (01) ==
LOC: X.SURG 06:20
PROVIDERS: ATTEND Obstetrics & Gynecology
DX: Z30.2 Encounter for sterilization (principal)

== ENCOUNTER → 2017-09-24 | Outpatient (CLI) | payer OTHER ==
[~2017-09-24] MED LIST changes: -ATROPINE SULFATE 0.1 MG/ML 5ML SYR IV PRN; -BUPIVACAINE 0.5 % 5 MG/1 ML MPF 30ML VIAL ONE; -DEXAMETHASONE SOD INJ 4 MG/ML VIAL ONE; -EpHEDrine SULFATE INJ 50 MG/ML AMP IV PRN; -FENTANYL CITRATE INJ 50 MCG/1 ML 2 ML VIAL IV PRN; -FENTANYL CITRATE INJ 50 MCG/1 ML 2 ML VIAL ONE; -FLUMAZENIL 0.1 MG/1 ML 10 ML VIAL IV PRN; -GLYCOPYRROLATE INJ 0.2 MG/ML VIAL ONE; -IBUPROFEN 600 MG TAB PO PRN; -KETOROLAC TROMETHAMINE 30 MG/ML VIAL IV. PRN; -KETOROLAC TROMETHAMINE 30 MG/ML VIAL ONE; -LACTATED RINGER'S 1000ML 1,000 ML IV SCH; -LIDOCAINE HCL 2% 2 ML VIAL (20MG/ML) ONE; -MIDAZOLAM HCL 1 MG/ML 2ML VIAL ONE; -MoRPHine SULFATE 2 MG/ML CARP IV PRN; -NALOXONE HCL 0.4 MG/1 ML VIAL/CARP IV PRN; -NEOSTIGMINE METHYLSULFATE 5 MG/5 ML SYR ONE; -ONDANSETRON INJ 2 MG/ML 2 ML VIAL IV PRN; -ONDANSETRON INJ 2 MG/ML 2 ML VIAL ONE; -OXYCODONE/ACETAMINOPHEN 5-325 TAB PO PRN; -PROMETHAZINE HCL INJ 12.5 MG in SODIUM CHLORIDE 0.9% 50ML 50 ML IV PRN; -PROPOFOL IV EMULSION 10 MG/ML 20 ML VIAL IV ONE; -ROCURONIUM BROMIDE 10 MG/ML 5 ML VIAL IV ONE; -SODIUM CHLORIDE 0.9% 1000ML 1,000 ML IV SCH
== END | disposition home or self-care (01) ==
LOC: C.LABSPEC 15:59
PROVIDERS: ATTEND Obstetrics & Gynecology
DX: Z20.2 Contact with and (suspected) exposure to infections with a predominantly sexual mode of transmission (principal)

== ENCOUNTER 2017-11-24 14:31 | Emergency (ER) | payer OTHER ==
[~2017-11-24] VITALS: Ht 162.6 cm; Wt 70.0 kg
[2017-11-24 14:33] VITALS: TEMP 36.7; Ht 162.6 cm; Wt 70.0 kg
[2017-11-24] MEDS ORDERED: KETOROLAC TROMETHAMINE 60 MG/2 ML VIAL IM STA (14:43)
[2017-11-24] MEDS ORDERED: OXYCODONE HCL IR 5 MG TAB (IMMEDIATE RELEASE) PO STA (14:43)
--- NOTE | 2017-11-24 15:36 | DIAGNOSTIC IMAGING REPORT ---
SACRUM COCCYX MIN 2 VIEWS CLINICAL HISTORY: Fall/sacrococcygeal pain trauma COMPARISON STUDY: None FINDINGS: Hairline nondisplaced cortical fracture lower sacrum. All remaining osseous structures are unremarkable. IMPRESSION: Nondisplaced cortical fracture of the lower sacrum The above report was generated using voice recognition software. It may contain grammatical, syntax or spelling errors. Electronically signed by: Wilber Curran M.D. 11/24/2017 3:34 PM Dictated Date/Time: 11/24/2017 3:34 PM
--- NOTE | 2017-11-24 15:37 | DIAGNOSTIC IMAGING REPORT ---
L-SPINE MIN 4 VIEWS ROUTINE HISTORY: Trauma Fall/low back pain COMPARISON: None. FINDINGS: There is no fracture. No subluxation. Disc spaces are preserved. IMPRESSION: No fracture or subluxation within the lumbar spine. The above report was generated using voice recognition software. It may contain grammatical, syntax or spelling errors. Electronically signed by: Wilber Curran M.D. 11/24/2017 3:35 PM Dictated Date/Time: 11/24/2017 3:35 PM
--- NOTE | 2017-11-24 15:37 | DIAGNOSTIC IMAGING REPORT ---
L FINGER(S) MIN 2 VIEWS ROUTINE CLINICAL HISTORY: Fall/left fifth finger pain trauma COMPARISON: None. DISCUSSION: The bones and joint spaces appear intact. There is no evidence of fracture, dislocation or bony disease. There is no evidence for soft tissue swelling. IMPRESSION: Negative study. The above report was generated using voice recognition software. It may contain grammatical, syntax or spelling errors. Electronically signed by: Wilber Curran M.D. 11/24/2017 3:36 PM Dictated Date/Time: 11/24/2017 3:35 PM
[2017-11-24] MEDS ORDERED: IBUP-103 PO (15:49)
[2017-11-24] MEDS ORDERED: HYDR-5688 PO (15:52)
--- NOTE | 2017-11-24 15:52 | EMERGENCY ROOM VISIT NOTE ---
History First contact with patient: 14:36 Chief Complaint: FALL Stated Complaint: FALL,HIP,LEG PAIN History of Present Illness The patient is a 37 year old female who presents to the Emergency Room with complaints of falling and injuring her low back and tailbone. Patient states that she was holding her 8-month-old child and was wearing socks when she slipped on her steps and fell onto her buttocks protecting her baby in her arms. She states that she fell down 10 steps, striking her buttocks. The patient denies any head injury, neck pain, chest or abdominal pain. She does admit to catching her left fifth finger on something as she went down the steps. The patient is right-hand dominant. The patient denies any loss of bowel or bladder control. She does admit to some pain in her right thigh. She thinks that is just muscular. The patient denies any numbness and tingling in the legs. The patient thought she would be okay and drove here to work. The patient works at [employer]. When she got to the hospital she realized that she needed to come to the ER for evaluation. She has not taken anything for pain. Review of Systems 10 system review was performed and was negative unless stated otherwise history of present illness. Past Medical/Surgical History Medical Problems: (1) contractions, 39 weeks (2) Normal labor (3) with 39 completed weeks gestation Appendectomy, tubal ligation Social History Smoking Status: Never Smoker Drug Use: none Marital Status: Occupation Status: employed Current/Historical Medications Scheduled PRN Hydrocodone/Acetaminophen 5MG/325MG ([place] 5MG/325MG), 1-2 TABLET PO Q6 PRN for Pain Ibuprofen Tab (Advil), 400-600 MG PO Q6H PRN for Headache or Pain Physical Exam Vital Signs Date Time Temp Pulse Resp B/P (MAP) Pulse Ox O2 Delivery O2 Flow Rate FiO2 11/24/17 14:33 36.7 81 18 118/70 99 Room Air Physical Exam GENERAL: 87-year-old white female appears uncomfortable secondary to pain. MENTAL Status: Alert and oriented 3. LUNGS: Clear auscultation without wheezes rales or rhonchi. CARDIAC: Regular rate and rhythm without murmur. Pulses is full and equal throughout. LUMBAR SPINE: No gross bony deformity noted. The patient is tender to palpation over the lower lumbar region. Patient is able to heel and toe walk without difficulty. Bilateral patellar and Achilles reflexes are 2+. SACRUM/COCCYX: The patient has tenderness to palpation over the mid to lower sacrum and coccyx region. No ecchymosis noted. RIGHT LEG: No gross bony deformity noted. No erythema or edema noted. The patient has slight tenderness to palpation over the quadriceps. Full range of motion of the right hip and knee without pain. The patient is nontender to palpation over the hip joint and knee joint. LEFT FIFTH FINGER; no gross bony deformity noted. There is a small over the lateral aspect of the distal phalanx. Generalized swelling to the finger. Limited range of motion secondary to pain. Medical Decision & Procedures ER Provider Diagnostic Interpretation: L-SPINE MIN 4 VIEWS ROUTINE HISTORY: Trauma Fall/low back pain COMPARISON: None. FINDINGS: There is no fracture. No subluxation. Disc spaces are preserved. IMPRESSION: No fracture or subluxation within the lumbar spine. The above report was generated using voice recognition software. It may contain grammatical, syntax or spelling errors. Electronically signed by: Wilber Curran M.D. 11/24/2017 3:35 PM L FINGER(S) MIN 2 VIEWS ROUTINE CLINICAL HISTORY: Fall/left fifth finger pain trauma COMPARISON: None. DISCUSSION: The bones and joint spaces appear intact. There is no evidence of fracture, dislocation or bony disease. There is no evidence for soft tissue swelling. IMPRESSION: Negative study. The above report was generated using voice recognition software. It may contain grammatical, syntax or spelling errors. Electronically signed by: Wilber Curran M.D. 11/24/2017 3:36 PM SACRUM COCCYX MIN 2 VIEWS CLINICAL HISTORY: Fall/sacrococcygeal pain trauma COMPARISON STUDY: None FINDINGS: Hairline nondisplaced cortical fracture lower sacrum. All remaining osseous structures are unremarkable. IMPRESSION: Nondisplaced cortical fracture of the lower sacrum The above report was generated using voice recognition software. It may contain grammatical, syntax or spelling errors. Electronically signed by: Wilber Curran M.D. 11/24/2017 3:34 PM Medications Administered Medications (Trade) Dose Ordered Sig/Eunice Route Start Time Stop Time Status Last Admin Dose Admin Oxycodone HCl (Roxicodone Immediate Rel Tab) 5 mg NOW STAT PO 11/24/17 14:43 11/24/17 14:45 DC 11/24/17 14:52 5 MG Ketorolac Tromethamine (Toradol Inj) 60 mg NOW STAT IM 11/24/17 14:43 11/24/17 14:45 DC 11/24/17 14:53 60 MG ED Course The patient was evaluated. The patient's EMR medication list were reviewed. The patient was given Toradol 60 mg IM and OxyIR 5 mg p.o. for pain. X-ray of the lumbar spine, sacrum and coccyx, left fifth finger were ordered interpreted by the radiologist and myself as above. Finger x-ray was negative. Lumbar spine x-ray was negative. Sacrococcyx x-ray revealed a cortical hairline of the sacrum. Fracture the patient was informed of all findings. The patient was reevaluated and was feeling better. I also discussed with the patient that it looked like she had a large amount of stool within her colon and that I will be prescribing her some narcotics therefore she needs to make sure she is taking a stool softener to prevent constipation. The patient verbalized understanding. The patient was discharged home in stable condition with a family member driving. Medical Decision Differential diagnosis include fractures versus contusions. [place] Drug Monitoring Program Search Results: patient reviewed within database Medication Reconcilliation Current Medication List: was personally reviewed by me Blood Pressure Screening Patient's blood pressure: Normal blood pressure Impression Primary Impression: Sacral fracture, closed Additional Impressions: Low back pain Contusion of finger, left Departure Information Dispostion Home / Self-Care Condition GOOD Prescriptions Hydrocodone/Acetaminophen 5MG/325MG ([place] 5MG/325MG) Tab 1-2 TABLET PO Q6 Y for Pain, #20 TAB For Initial Treatment Prov: Yaima Curran PA-C 11/24/17 Referrals No Doctor, Assigned (PCP) Forms HOME CARE DOCUMENTATION FORM, IMPORTANT VISIT INFORMATION Patient Instructions My [employer] Additional Instructions Ibuprofen 600 mg every 6 hours with food for pain. Take [place] as needed for more severe pain. Do not drive while taking the [place]. Also recommend taking a stool softener while taking the [place] to prevent constipation. Recommend going to a medical supply store to get a donut to sit on to aid in pain relief. Off work for 2 days. Return to work on May 1 . if symptoms persist or worsen , follow-up with your family doctor for reevaluation. Problem Qualifiers Primary Impression: Sacral fracture, closed Encounter type: initial encounter Fracture morphology: unspecified fracture morphology Qualified Codes: S32.10XA - Unspecified fracture of sacrum, initial encounter for closed fracture Additional Impressions: Low back pain Chronicity: acute Back pain laterality: unspecified Sciatica presence: without sciatica Qualified Codes: M54.5 - Low back pain Contusion of finger, left Encounter type: initial encounter Finger: little finger Damage to nail status: without damage Qualified Codes: S60.052A - Contusion of left little finger without damage to nail, initial encounter
[2017-11-24 16:05] VITALS: BP 106/78; PULSE 61; O2SAT 98
== END 2017-11-24 16:06 | disposition home or self-care (01) ==
LOC: C.EDB 14:33 → C.EDD 16:06
DX: S32.10XA Unspecified fracture of sacrum, initial encounter for closed fracture (principal); M54.5 Low back pain; S60.052A Contusion of left little finger without damage to nail, initial encounter; W10.9XXA Fall (on) (from) unspecified stairs and steps, initial encounter